=== PATIENT | female | born 1955 | race Caucasian/White ===

== ENCOUNTER 2025-01-30 10:48 | Outpatient (REF) | payer MEDICARE, SELFPAY ==
[2025-01-30 14:20] LABS: Hemoglobin A1C 128.9071 umol/L
[2025-01-30 14:27] LABS: Alanine Aminotransferase 33 U/L (0-31); Albumin Level 4.5 g/dL (3.5-5.0); Alkaline Phosphatase 104 U/L (39-117); Anion Gap 11 (12-20); Aspartate Amino Transferase 36 U/L (5-31); Blood Urea Nitrogen 15 mg/dL (9-16); Calcium 10.0 mg/dL (8.4-10.2); Carbon Dioxide 31 mmol/L (22-29); Chloride 104 mmol/L (96-108); Cholesterol 233 mg/dL (<200); Estimated Glomerular Filt Rate > 60; HDL Cholesterol 72 mg/dL (>40); Iron 106 mcg/dL (30-160); Percent Iron Saturation 30 % (15-50); Potassium 4.1 mmol/L (3.3-5.1); Sodium 142 mmol/L (135-145); Total Iron Binding Capacity 358 mcg/dL (228-428); Total Protein 7.3 g/dL (6.5-8.0); Triglycerides 111 mg/dL (<150); Unsaturated Iron Binding 252 ug/dL
[2025-01-30 14:42] LABS: Ferritin 32 ng/mL (10-250)
[2025-01-30 14:46] LABS: Hematocrit 45.2 % (37.0-47.0); Hemoglobin 14.6 g/dl (12.0-16.0); Mean Corpuscular HGB Conc 32.3 g/dl (31.0-35.0); Mean Corpuscular Hemoglobin 31.8 pg (27.0-33.0); Mean Corpuscular Volume 98.5 fL (80.0-98.0); NRBC Abs Auto 0.000 X10*3/uL (0.0-0.012); NRBC Pct Auto 0.0 /100WBC (0.0-0.2); Platelet Count 242 X10*3/uL (160-400); Red Blood Count 4.59 X10*6/uL (4.20-5.50); White Blood Count 5.5 X10*3/uL (4.8-10.8)
[2025-01-30 14:56] LABS: Folate 17.6 ng/mL (> or = 4.0); Vitamin B12 1902 pg/mL (200-900)
[2025-01-30 15:58] LABS: Free T4 (Free Thyroxine) 0.85 ng/dL (0.71-1.85)
== END 2025-01-30 10:49 | disposition home or self-care (01) ==
LOC: HO.LNP 10:48
PROVIDERS: Visit Provider Nurse Practitioner Family
DX: E03.8 Other specified hypothyroidism (principal); E78.5 Hyperlipidemia, unspecified; D72.819 Decreased white blood cell count, unspecified; E78.2 Mixed hyperlipidemia; R07.9 Chest pain, unspecified; Z78.0 Asymptomatic menopausal state; Z79.890 Hormone replacement therapy; Z79.899 Other long term (current) drug therapy; Z76.89 Persons encountering health services in other specified circumstances
CPT/HCPCS: 80053; 80061; 82043; 82306; 82570; 82607; 82728; 82746; 83036; 83540; 84439; 84443; 85027; 96127; 99202

== ENCOUNTER 2025-01-30 10:48 | Outpatient (AMB) | payer MEDICARE, SELFPAY ==
--- NOTE | 2025-01-30 10:54 | MHC.PC.OV ---
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 Tip Finisher Required: No Allergies codeine Adverse Reaction (Severe, Verified 01/30/25 10:59) Vomiting hydrocodone (From Vicodin) Adverse Reaction (Severe, Verified 01/30/25 10:59) Fainting Medication List - Last Reviewed 01/30/25 by Pollo Herzog MA estradiol (Yuvafem) 10 mcg vaginal 3XW finasteride 2.5 mg PO DAILY ivermectin 1% appl topical DAILY valacyclovir 500 mg PO Q12H Tobacco use date assessed: 01/30/25 Fall risk assessment: No Falls in past year Last assessed Fall Risk: 01/30/25 Dental Screening Dental Screen Date: 01/30/25 Did you have a dental visit in the last 12 months?: Yes Did you have a dental problem in the last 6 months where you did not have access to dental care?: No Was dental information given to patient?: Patient has dentist HPI HPI Comments History of Present Illness Details 69 y/ F HLD, chronic low back pain, osteopenia, menopause, rosacea, subclinical hypothyroid, recurrent leukopenia, fhx breast & colon ca, hairloss SurgHx: cone bx cervix, left thumb tumor removal, CTS R, tonsills, fusion of lumbar spine [id number] Dr Crouch, , hysterectomy FHx: Mom breast ca; Brother colon Ca; MGM cancer unknown 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 Feels safe at home. No pets. Health Maintenance: See scanned preventative medicine assessment with personalized health plan and screening schedule. 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 Previous PCP - [facility], records reviewed. Suspected Hypothyroidism: - The patient has a history of subclinical hypothyroidism and was on medication for it for several years but has since stopped. - She is currently concerned her thyroid may be an issue again due to symptoms including hair loss, dull hair, brittle nails that break, fatigue, and possible depression. fatigue, hair loss, brittle nails and depressive symptoms: - The patient reports increased fatigue, feeling tired and rundown, going to bed at 8 PM, and feeling she could use a nap during the day. - A depression screening was positive for reduced pleasure, low energy, and poor appetite at times. Intermittent chest pressure: - The patient reports experiencing intermittent, non-debilitating pressure-like pain in her chest area. - These episodes are infrequent, occurring perhaps four or five times since 2022, with the last episode a couple of weeks ago after a year-long gap. - One episode lasted for about two hours and was associated with back radiation, prompting her to consider a gallbladder issue, especially after consuming nuts. - Breathing does not seem to affect the pain and she has not identified other triggers. - A stress test was previously ordered by her former provider, but she did not receive the results. I do not have these @ this time but have requested. Medical History: - Past medical history is significant for hyperlipidemia, chronic low back pain, osteopenia, rosacea, and chronic leukopenia. - She has a history of herpes simplex, for which she takes valacyclovir as needed. - She had a fall a couple of years ago where she hit the back of her head on a doorframe and also broke her wrist in a separate incident. - The patient reports allergies/adverse reactions to codeine and Vicodin (hydrocodone). NOT APAP - Family history includes breast cancer in her mother and colon cancer in her brother. - She is followed by a managed care director for rosacea and an FLATBED PRESS OPERATOR for her Yuvafem prescription. - Her immunizations are up to date, including influenza, COVID-19, shingles, and a tetanus shot in 2019. Past Medical History - Hyperlipidemia - Chronic low back pain - Osteopenia - Rosacea - Subclinical hypothyroidism - Chronic leukopenia - Herpes simplex infection - History of fall with head injury and wrist fracture - Family history of breast cancer (mother) and colon cancer (brother) Review of Systems - General: Reports fatigue and feeling tired/rundown. - Psychiatric: Reports symptoms of depression including decreased pleasure, low energy, and poor appetite at times. Denies anxiety. - Integumentary/Hair/Nails: Reports hair loss, dull hair, and brittle nails. - Cardiovascular: Reports intermittent chest pressure. Denies lower extremity swelling. - Genitourinary: Denies dysuria. Physical Exam General: Well developed, well nourished, in no acute distress. Appears stated age. Head: Normocephalic, atraumatic. Eyes: Pupils are equal, round and reactive to light and accommodation. Conjunctivae are clear. Vision grossly normal. Neck: thyroid without nodules or tenderness Lungs: Clear to auscultation bilaterally. No rales, rhonchi or wheeze noted. Good air flow in all arshad. Heart: Regular rate and rhythm. No murmurs, click, rubs or gallops are noted. Musculoskeletal: Joints are nontender, without swelling, redness, or effusions. Pulses: Peripheral pulses are equal and palpable bilaterally. Extremities: No clubbing, cyanosis nor edema is noted. Psych: Mood and affect appropriate Results - Depression Screen (PHQ): Positive for decreased pleasure, low energy, and poor appetite. - Anxiety Screen: Negative. - Stress Test: Previously ordered, but results were not received and are pending request from prior provider. Medical Decision Making The patient is a 69-year-old female establishing care, presenting with concerns of fatigue, hair loss, brittle nails, and low mood, which she suspects may be related to her history of subclinical hypothyroidism. Given these symptoms, a laboratory workup is warranted to investigate potential underlying etiologies, including thyroid dysfunction, anemia, and vitamin deficiencies. Additionally, the patient reports infrequent, intermittent chest pressure. The differential for this includes both cardiac and gastrointestinal causes. To further evaluate this, I will request the records of her prior exercise stress test. The current lab panel will also include liver function tests, which can offer insight into possible gallbladder pathology, a consideration given the nature of one of her episodes. Further workup, such as a gallbladder ultrasound, H. pylori testing, or a nuclear stress test, will be contingent on the initial lab results and stress test review. The comprehensive plan is to obtain initial blood work today and have the patient follow up in 2-3 weeks for a full physical examination and a detailed in-person discussion of the results to formulate a collaborative treatment plan. Plan 1. Establishment Of Care And Health Maintenance - The patient will undergo blood work today to evaluate thyroid function, screen for anemia, and assess vitamin levels. - A follow-up appointment is scheduled in 2-3 weeks for a complete annual physical exam and to review the laboratory results. - The patient was counseled on signing up for the [employer] patient portal for improved communication with the office. - Confirmed patient's vaccinations for influenza, COVID-19, tetanus, and shingles are all up to date. 2. Fatigue, Hair Loss, Brittle Nails, And Depressive Symptoms - The differential diagnosis includes hypothyroidism, anemia, and vitamin deficiencies. - Plan to check a thyroid panel, complete blood count (CBC), and vitamin levels via blood work today. - Will reassess symptoms and discuss management based on lab results at the follow-up visit. 3. Intermittent Chest Pressure - The differential includes gastrointestinal causes such as cholelithiasis or H. pylori, as well as cardiac etiologies. - A request will be sent to obtain the results of the patient's previous exercise stress test for review. - Today's blood work includes liver and gallbladder function tests. - Further investigation with a gallbladder ultrasound or a nuclear stress test may be considered pending the results of the initial workup. 4. Medication Management - The patient's medication list was reviewed, including estradiol (Yuvafem), finasteride, ivermectin, and as-needed valacyclovir. - The patient states she does not need any refills at this time. - Documented adverse reactions to codeine and hydrocodone (Vicodin). Patient Instructions - Please have your blood drawn at the lab here in the office before you leave today. You do not need to fast for this. - Stop at the javascript front end developer to schedule your follow-up appointment for about 2-3 weeks from now. - You will receive a printout with information about our office and instructions on how to sign up for our [employer] patient portal. Please sign up and use it to message our office. - We will discuss your lab results in person at your next visit unless there is a serious issue that needs immediate attention. - Remember that we have walk-in centers in [facility] for our patients if you need to be seen for an urgent issue. Consent Patient was informed and verbally consented to the use of an ambient scribe for clinic note documentation during this visit. Total time spent caring for the patient today was 45 minutes. This includes time spent before the visit reviewing the chart, time spent during the visit, and time spent after the visit on documentation, reviewing laboratory results, diagnostic imaging, medications, performing a medically necessary evaluation, counseling on diagnoses, care coordination, ordering appropriate tests, ordering appropriate medications, review of tests performed by other providers, reporting test results with the patient, communication with other healthcare providers. [facility] Medical History (Updated 01/30/25 @ 11:36 by Yesenia Moore [facility]) Arthritis Carpal tunnel syndrome Rosacea Thyroid disorder Surgical History (Updated 01/30/25 @ 11:32 by Pollo Herzog MA) H/O cone biopsy of cervix H/O: hysterectomy History of lumbar fusion History of tonsillectomy Hx of colonoscopy (~2017) Family History (Updated 01/30/25 @ 11:32 by Pollo Herzog MA) Brother HTN (hypertension) Mother Breast cancer Paternal Grandfather Substance abuse Social History (Updated 01/30/25 @ 10:55 by Pollo Herzog MA) Household Members: None Both parents involved: No Caregiver staying overnight: No Housing: House Are you a primary manager wound care to a significant other at home: No Do you presently have visiting nurse or other home services: No 75 years or older and lives alone: No Alcohol intake: never Patient Tobacco Use Status: Never used Tobacco e-Cigarette/Vaping Use: Never Used Second Hand Smoke Exposure: No service: No Current occupational status: employed and retired 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 1. Little interest or pleasure in doing things: several days 2. Feeling down, depressed, or hopeless: not at all 3. Trouble falling or staying asleep, or sleeping too much: not at all 4. Feeling tired or having little energy: several days 5. Poor appetite or overeating: several days 6. Feeling bad about yourself - or that you are a failure or have let yourself or your family down: not at all 7. Trouble concentrating on things, such as reading the newspaper or watching television: not at all 8. Moving or speaking so slowly that other people could have noticed. Or the opposite - being so fidgety or restless that you have been moving around a lot more than usual: not at all 9. Thoughts that you would be better off or of hurting yourself in some way: not at all Total score: 3 Depression Screening Interpretation: Negative Depression Screening Done: Yes 79869 - PHQ-9 Billing: Yes Source: Developed by Drs. Star Skinner, Jennifer Ivy, Mik Maciel and colleagues, with an educational portia from [employer]. Thrive Questionnaire Date Thrive assessed: 01/30/25 I am a: Patient What is your living situation today?: I have a steady place to live Within the past 12 months, did the food you bought not last and you didn't have the money to get more?: Never true Within the past 12 months, did you worry whether your food would run out before you got money to buy more?: Never true Do you have trouble paying for medicines?: No Do you have trouble getting transportation to medical appointments?: No Do you have trouble paying your heating and electricity bill?: No Do you have trouble taking care of your child, family member or friend?: No Do you have trouble with day-to-day activities such as bathing, preparing meals, shopping, managing finances, etc.?: No Are you currently unemployed and looking for a job?: No Are you interested in more education?: No Please select the resources that you would like help with: None Currently or been in a relationship where the following occur: No concerns reported THRIVE Score: 0 AUDIT C Alcohol Use Questionnaire (AUDIT-C) 1. How often do you have a drink containing alcohol?: Never 3. How often do you have six or more drinks on one occasion?: Never Total Score: 0 Score Reviewed/Action Taken: Yes SHRUTHI-7 AMB Questionnaire SHRUTHI-7 Date SHRUTHI - 7 assessed: 01/30/25 Feeling nervous, anxious, or on edge: 0 = Not at all Not being able to stop or control worryin = Not at all Worrying too much about different things: 0 = Not at all Trouble relaxin = Not at all Being so restless that it is hard to sit still: 0 = Not at all Becoming easily annoyed or irritable: 0 = Not at all Feeling afraid as if something awful might happen: 0 = Not at all Total SHRUTHI-7 score (0-4 normal; 5-9 mild; 10-14 moderate; 15-21 severe): 0 Source: Developed by Drs. Star Skinner, Jennifer Ivy, Mik Maciel and colleagues, with an educational portia from [employer]. SHRUTHI-7 Assessment Billing SHRUTHI-7 Assessment Tool: SHRUTHI-7 Assessment 76867 Physical exam (Primary Care) Vital Signs: Last Vital Signs Temp 97.2 F 01/30/25 11:02 Pulse 68 01/30/25 11:02 Resp 12 01/30/25 11:02 BP 102/67 01/30/25 11:02 Pulse Ox 97 01/30/25 11:02 Oxygen Delivery Method Room Air 01/30/25 11:02 BMI result Body Mass Index 19.9 Tobacco/Smoking Status: Tobacco use Status Tobacco use date assessed 01/30/25 01/30/25 10:58 Patient Tobacco Use Status Never used Tobacco 01/30/25 11:05 e-Cigarette/Vaping Use Never Used 01/30/25 11:05 PHQ-9: PHQ-9 Score PHQ-9: Total score 3 01/30/25 11:07 Depression Screening Interpretation: Negative Thrive Assessment: Date of Thrive Assessment Date Thrive assessed 01/30/25 01/30/25 10:58 Currently or been in a relationship where the following occur: No concerns reported Coding Level of Care Code New Pt Level 4 (06032) Complex EM visit Add On G2211 Diagnoses Encounter to establish care Z76.89 Mixed hyperlipidemia E78.2 Hyperlipidemia type: mixed hyperlipidemia Subclinical hypothyroidism E03.8 Chronic leukopenia D72.819 Menopause Z78.0 Chest pain, unspecified type R07.9 Chest pain type: unspecified Additional Codes SHRUTHI-7 Assessment Billing - SHRUTHI-7 Assessment Tool: SHRUTHI-7 Assessment 58462 ([id number]) PHQ-9 - 59324 - PHQ-9 Billing: Yes ([id number]) Assessment & Plan Assessment & Plan (1) Encounter to establish care: Code(s): Z76.89 - Persons encountering health services in other specified circumstances (2) HLD (hyperlipidemia): Code(s): E78.5 - Hyperlipidemia, unspecified Category: Medical Qualifiers: Hyperlipidemia type: mixed hyperlipidemia Qualified Code(s): E78.2 - Mixed hyperlipidemia (3) Subclinical hypothyroidism: Code(s): E03.8 - Other specified hypothyroidism Category: Medical (4) Chronic leukopenia: Code(s): D72.819 - Decreased white blood cell count, unspecified Category: Medical (5) Menopause: Code(s): Z78.0 - Asymptomatic menopausal state Category: Medical (6) Chest pain: Code(s): R07.9 - Chest pain, unspecified Category: Medical Qualifiers: Chest pain type: unspecified Qualified Code(s): R07.9 - Chest pain, unspecified Plan . Orders: Orders Comprehensive Met. Panel Today D72.819 - Decreased white blood cell count, unspecified, E03.8 - Other specified hypothyroidism, E78.5 - Hyperlipidemia, unspecified Ferritin Today D72.819 - Decreased white blood cell count, unspecified, E03.8 - Other specified hypothyroidism, E78.5 - Hyperlipidemia, unspecified IRON PROFILE Today D72.819 - Decreased white blood cell count, unspecified, E03.8 - Other specified hypothyroidism, E78.5 - Hyperlipidemia, unspecified Vitamin B12 and Folate Today D72.819 - Decreased white blood cell count, unspecified, E03.8 - Other specified hypothyroidism, E78.5 - Hyperlipidemia, unspecified Vitamin D 25-OH Total Today D72.819 - Decreased white blood cell count, unspecified, E03.8 - Other specified hypothyroidism, E78.5 - Hyperlipidemia, unspecified Complete Blood Count no Diff Today D72.819 - Decreased white blood cell count, unspecified, E03.8 - Other specified hypothyroidism, E78.5 - Hyperlipidemia, unspecified Hemoglobin A1c Today D72.819 - Decreased white blood cell count, unspecified, E03.8 - Other specified hypothyroidism, E78.5 - Hyperlipidemia, unspecified Lipid Panel Today D72.819 - Decreased white blood cell count, unspecified, E03.8 - Other specified hypothyroidism, E78.5 - Hyperlipidemia, unspecified Microalbumin, Random (w Creat) Today D72.819 - Decreased white blood cell count, unspecified, E03.8 - Other specified hypothyroidism, E78.5 - Hyperlipidemia, unspecified TSH reflex Free T4 Today D72.819 - Decreased white blood cell count, unspecified, E03.8 - Other specified hypothyroidism, E78.5 - Hyperlipidemia, unspecified Medications: New valacyclovir 500 mg PO Q12H 30 tabs 0RF Patient Instructions: Walk-In Care (Urgent Care): We Make it Easy Walk-in for urgent medical issues such as: ? Seasonal Allergies ? Insect Bites ? Cough ? Diarrhea ? Acute Asthma Attacks ? Back, Knee or Joint Pain ? Ear Infection ? Fever without a Rash ? Headaches ? Nausea ? [place], Rash or Skin Irritation ? Sore Throat ? Sports Physicals ? Vomiting Most insurances are accepted. Patients do not need to be part of the [facility] to seek care at the walk-in clinic. Locations [address] [place], [place] Open Thursday through Thursday 8am-5pm *Hours may vary due to staffing availability. To confirm Walk-In Care hours please call. [address] [facility] , [place] [address] ? [phone] [facility] Walk-In Care in [place] provides services to ages 18 and over. Open Thursday-Thursday: 7 a.m. to 5 p.m. and Thursday: 9 a.m. to 3 p.m.* *Hours may vary due to staffing availability. To confirm Walk-In Care hours in [place], please call [phone]. [address] [place] [address] ? [phone] [facility] Walk-In Care in [place] provides services to ages 12 and over. Open Thursday-Thursday: 8 a.m. to 5 p.m. Hours may vary due to staffing availability. To confirm Walk-In Care hours in [place], please call [phone]. LABORATORY SERVICES: [facility] Lab ? Primary Location [address] [place] [address] Thursday through Thursday 6:00 AM ? 5:00 PM Thursday 7:00 AM ? 11:00 AM* [phone] The [facility] Lab is centrally located near the front entrance of the [facility] for easy outpatient access. Convenient parking is provided for outpatients. *Hours may vary due to staffing availability. To confirm Laboratory hours for any location, please call [phone]. Offsite Location For your convenience, we offer offsite laboratory draw stations at the following locations: [address] [place] [address] ? [facility] [address], [address], [place] Thursday through Thursday 7:30 AM ? 1:00 PM* [phone] *Hours may vary due to staffing availability. To confirm Laboratory hours for any location, please call [phone]. [place] ? [facility] [address] [facility], [place] Thursday through Thursday 6:00 AM ? 3:30 PM* Thursday 6:30 AM ? 3 PM* [phone] *Hours may vary due to staffing availability. To confirm Laboratory hours for any location, please call [phone]. [address] [facility] Thursday through Thursday 7:30 AM ? 4:00 PM* [phone] *Hours may vary due to staffing availability. To confirm Laboratory hours for any location, please call [phone] [place] [address] Thursday through 9:00 AM ? 4:00 PM* *Hours may vary due to staffing availability. To confirm Laboratory hours for any location, please call [phone]. Appointments are not necessary. Walk-ins are welcome. Like all the departments throughout the [facility], our Lab undergoes frequent reviews to ensure the quality and accuracy of test results, and our staff takes special pride in its status as a nationally accredited facility. Patient Portal: [facility] ONE PATIENT. ONE RECORD. BETTER CARE. [facility] has a fully integrated, cutting-edge mobile electronic health information system that has revolutionized the way we care for our patients and manage our organization. This system improves communication and coordination enabling us to provide safe, higher-quality care, and an overall positive experience for staff and patients. Our first priority, as always, is to deliver the highest quality care possible. The system is running in the background supporting that priority. This portal is for all [facility] services and practices. If you are experiencing any technical difficulties with enrolling or logging into the Patient Portal please complete the [facility] Patient Portal Technical Support Form. [facility] now offers a new secure on-line interactive tool for patients to review their health information ? ?Patient Portal. This interactive web portal will enable patients and their families to take an active role in their care by providing easy, secure access to their health information via the internet. The Patient Portal provides patients with instant access to their health information, including laboratory results, medications, allergies, demographic information, visit history, and more. In addition to managing their own care, parents and health care proxies with authorized consent will appreciate the ability to access the records of those individuals for whom they provide care. Please note: if you wish to gain access (Proxy) to another patient?s portal, you will be required to come to the Medical Records Department in person at [facility]. Both the patient giving proxy access and the proxy will need to provide photo identification and complete the appropriate authorization. The Patient Portal also allows track their appointments online. The [facility] Patient Portal also saves patients time by allowing them to submit updates to their demographic and contact information prior to their visits. Portal email notifications will also alert patients to any new activity on their portal, such as test results and new appointments. In order to initially enroll in the [facility] Patient Portal, you will need to enter some required information including the following: your [place] [facility] Medical Record number your personal home email address name date of Please note: In order to enroll in the [facility] Patient Portal, we need to have your email address on file in your electronic medical record. ?The email address needs to be specific for one person (yourself) in order for your Portal enrollment to be successful. ?You can update your email address in person with our Registration staff when you are registering for a hospital visit. ?Otherwise, you will need to come to the Health Information Management (Medical Records) Department at [facility]. ?We are open from Thursday ? Thursday from 7:30 a.m. ? 4:30 p.m. ?You will be required to present a photo id. Once you have successfully enrolled in the Patient Portal, you will receive a one-time user id and password for the Portal, sent to your email address. ?This will allow you to log into the Patient Portal within 99 hrs and reset your own logon id and password, and define personal security questions. ?Once your permanent login and password have been set, you can log into the [facility] Patient Portal at any time via the blue button above or from the Portal Logon button on any page of the [facility] website. [facility] and [facility] encourage all of our patients to enroll in Patient Portal as it presents a valuable opportunity for patients and their families to actively participate in their care and stay healthy Welcome to [facility]. ?We look forward to working with you.
[2025-01-30 11:02] VITALS: BP 102/67; PULSE 68; RESP 12; TEMP 36.2; O2SAT 97; BMI 19.9
--- OUTSIDE RECORDS SUMMARY | 2025-01-30 13:23 | XMS_ITS | Patient Health Record ---
Author Organization [facility] Address [address] [place] [address] Care Team Providers Care Biology Faculty Member Name Role Phone KAIN (), SARAVANANJOSSUEPATY Primary Care Provider U FAVIO Augustin Unavailable [phone] Allergies Allergen (clinical drug ingredient) Drug/Non Drug Allergy documented on EMR Reaction Allergy Type Onset Date Status codeine CODEINE Nausea/Vomiting/ Diarrhea Drug Allergy Active Results Component Value Reference Range Notes [id number] IGP No Culture 30 Plus Reviewed date:06/16/2024 04:42:37 PM Interpretation: Performing Lab:[facility] [place], [address], [address], [place], Phone - [phone], Director - [facility] Notes/Report: Clinical Information:Cervical, LMP: [place], Hx of HGSIL, + HPV Source.............Vagina LMP / Prev Treat...Hyst Dates / Results....06/08/23 HGSIL, + HPV Other..............Post Menopausal No. of containers..01 ThinPrep Vial DIAGNOSIS: NEGATIVE FOR IN TRAEPITHELIAL LESION OR MALIGNANCY. Specimen adequacy: Satisfact ory for evaluation. Clinician provided ICD10: Z0 1.419 Performed by: Sharad faith, Volcanology Professor (ASCP) . . Note: The Pap smear is a screening test designed to aid in the detection of premalignant and malignant conditions of the uterine cervix. It is not a diagnostic procedure and should not be used as the sole means of detecting cervical cancer. Both false-positive and false-negative reports do occur. . Test Methodology: This liquid based ThinPrep(R) pap test was screened with the use of an image guided system. HPV Aptima Negative Negative This nucleic acid amplification test detects fourteen high-risk HPV types (16,18,31,33,35,39,45,51,52,56,58 ,59,66,68) without differentiation. HPV Genotype Reflex Criteria not met, HPV Genotype not performed. PDF Report Reviewed date:06/16/2024 04:43:10 PM Interpretation: Performing Lab:[facility] [place], [address], [address], [place], Phone - [phone], Director - [facility] Notes/Report: Clinical Information:Cervical, LMP: [place], Hx of HGSIL, + HPV Source.............Vagina LMP / Prev Treat...Hyst Dates / Results....06/08/23 HGSIL, + HPV Other..............Post Menopausal No. of containers..01 ThinPrep Vial Reason For Referral No Information Medications Medication SIG (Take, Route, Fr equency, Duration) Notes Start Date End Date Status valACYclovir HCl 500 MG 1 tablet Orally every 12 hrs at earliest sign of outbreak; Duration: 3 days 03/18/2016 Activ e Estradiol 10 MCG 1 tablet Vaginal Thr ee times a Week; Duration: 365 days 02/01/2024 Activ e Calcium + D Active Folic Acid Active Multi-Vitamin - 1 tablet Orally Once a day Active Ivermectin 1 % 1 application Agricultural Lender ally Once a day Active Immunizations Vaccine Route Administration Date Status Comme nts Influenza, live, intranasal Intramuscular 04/03/2011 Pendi ng Tdap Intramuscular 03/26/2011 Pending Tdap Intramuscular 04/03/2011 Pending Social History Tobacco Use: Social History Observation Description Date Details (start date - stop date) Former Smoker NA - NA Tobacco use other than smoking: Question Answer Notes Are you an other tobacco user? No AUDIT-C (Standard) Question Answer Notes Did you have a drink containing alcohol in the p ast year? No Points 0 Interpretation Negative Tobacco Control (Standard) Question Answer Notes Tobacco use: Former smoker How long has it been since you last smoked? 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 .CE: Smoking: former smoker .CE: Smoking Amount: 1 PPD x 10 years .CE: Smoking Quit Date: 1981 Tobacco exposure: No smokers in home. 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 .CE: Smoking: former smoker .CE: Smoking Amount: 1 PPD x 10 years .CE: Smoking Quit Date: 1981 Tobacco exposure: No smokers in home. 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 .CE: Smoking: former smoker .CE: Smoking Amount: 1 PPD x 10 years .CE: Smoking Quit Date: 1981 Tobacco exposure: No smokers in home. 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 .CE: Smoking: former smoker .CE: Smoking Amount: 1 PPD x 10 years .CE: Smoking Quit Date: 1981 Tobacco exposure: No smokers in home. 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 Problems Problem Type SNOMED Code ICD Code Onset Dates Problem Status W/U Status Risk Notes Problem Hypothyroidism (50940100) Unspecified hypothyroidism (244.9) Active confirmed Problem Rosacea (083001959) Rosacea (695.3) Active conf irmed Problem Human papilloma virus deoxyribonucleic acid test positive, high risk on vaginal specimen (594322194697529) Cervical high risk human papillomavirus (HPV) DNA test positive (R87.810) Active confirmed Problem Postmenopausal atrophic vaginitis (00343666) Postmenopausal atrophic vaginitis (N95.2) Active confirmed Problem Postmenopausal bleeding (60434523) Postmenopausal bleeding (N95.0) Active confirmed Problem Herpetic vulvovaginitis (30962076) 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) Active confirmed Problem Abnormal findings on diagnostic imaging of breast (699828684) Other abnormal and inconclusive findings on diagnostic imaging of breast (R92.8) Active confirmed Problem Carpal tunnel syndrome (80967533) Carpal tunnel syndrome (354.0) Active confirmed Major Problem 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) (251248393) Unspecified hypertrophic and atrophic condition of skin (701.9) Active confirmed Diag Vital Signs Temperature 97.4 degrees Fahrenheit 06/14/2024 Blood pressure diastolic 70 mm Hg 06/14/2024 Height 61 in 06/14/2024 Blood pressure systolic 108 mm Hg 06/14/2024 Weight 104 lbs 06/14/2024 BMI 19.65 kg/m2 06/14/2024 Encounters Encounter Location Date Provider Diagnosis [facility] [place] [address] [employer] [address] [address] 06/14/2024 FAVIO RAPP Encounter for gynecological examination (general) (routine) without abnormal findings Z01.419 ; Encounter for screening mammogram for malignant neoplasm of breast Z12.31 and Postmenopausal atrophic vaginitis N95.2 [place] [address] [employer] [address] [address] 05/31/2024 FAVIO RAPP [facility] [address] [address] 10/25/2024 FAVIO RAPP Herpesviral vulvovaginitis A60.04 [facility] [place] [address] [employer] [address] [address] 02/01/2024 FAVIO RAPP [facility] [place] [address] [employer] [address] [address] 04/01/2024 FAVIO RAPP Herpesviral vulvovaginitis A60.04 [facility] [place] [address] [address] 06/24/2024 FAVIO RAPP [place] [address] [employer] [address] [address] 09/25/2024 FAVIO RAPP [place] [address] [address] 09/26/2024 FAVIO RAPP Assessments Encounter Date Diagnosis (ICD Code) Assessment Notes Treatment Notes Treatment Clinical Notes Section Notes 04/01/2024 Herpesviral vulvovaginitis (ICD-10 - A60.04) 06/14/2024 Encounter for gynecological examination (general) (routine) without abnormal findings (ICD-10 - Z01.419) During the visit, the following areas of concern were addressed: Discussed sstopping cervical cancer screening as per ASCCP guidelines. Advised continued annual pelvic exams. Patient encouraged to increase her level of exercise. SBE technique encouraged/tau ght. Patient reminded when annual mammogram is due. Patient encouraged to keep colon screening up to date. 10/25/2024 Herpesviral vulvovaginitis (ICD-10 - A60.04) 06/14/2024 Encounter for screening mammogram for malignant neoplasm of breast (ICD-10 - Z12.31) 06/14/2024 Postmenopausal atrophic vaginitis (ICD-10 - N95.2) Plan Of Treatment Pending Test Test Name Order Date Sonohysterogram 05/12/2017 MAMMOGRAM, SCREENING 10/03/2014 Bone Density 10/03/2014 Bone Density 12/05/2016 NTX 12/12/2014 ALK PHOS 12/12/2014 CALCIUM 12/12/2014 PTH, INTACT 12/12/2014 THIN PREP,HPV,MARLENY IF HPV+ (>29YR)(DIAG) 03/12/2018 THIN PREP,HPV,MARLENY IF HPV+ (>29YR)(DIAG) 10/11/2019 THIN PREP,HPV,MARLENY IF HPV+ (>29YR)(DIAG) 06/02/2022 THIN PREP,HPV,MARLENY IF HPV+ (>29YR)(DIAG) 03/17/2017 THIN PREP,HPV,MARLENY IF HPV+ (>29YR)(SCRN) 12/05/2015 TSH 12/12/2014 MM Digital Mammo Screening 12/05/2015 MM Digital Mammo Screening 03/12/2018 MM Digital Screening Mammogram 3D 2023 MM Digital Screening Mammogram 3D 2024 Right Breast Diagnostic Mamm o 6 Month Follow Up, Left Breast Screening Mammo 06/08/2023 Right Breast Diagnostic Mamm o 6 Month Follow Up, Left Breast Screening Mammo 06/02/2022 Next Appt Details Provider Name:FAVIO Sky, 06/20/2025 08:00:00 AM, [address], [address], [place], [address], Insurance Providers Payer Name Payer Address Payer Phone Subscriber Number Group Number Insured Name Patient Relationship to Insured Coverage Start Date Coverage End Date [employer] MEDICARE PPO [address] [place] [address] [id number] ISMA PRUITT Self - patient is the insured Medical (General) History Medical History History ICD Code Cervical high risk human papillomavirus (HPV) DNA test positive R87.810 Postmenopausal bleeding N95.0 Hypothyroidism, unspecified E03.9 Other rosacea L71.8 Carpal tunnel syndrome, unspecified uppe r limb G56.00 Atrophic disorder of skin, unspecified L 90.9 Low grade squamous intraepit helial lesion on cytologic smear of cervix (LGSIL) R87.612 Disorder of bone density and structure, unspecified M85.9 Age-related osteoporosis without current pathological fracture M81.0 Atypical squamous cells of u ndetermined significance on cytologic smear of cervix (ASC-US) R87.610 Surgical History Surgery Date(Month/Year) Carpal Tunnel Repair Tonsillectomy Thumb Surgery 2016 [facility] biopsy 12/2018 Cyst Removed and L4, L5 fused 07/2020 Robotic assisted LVH BSO for CIN3 (Dr. Reyna vega) 03/27/2021 Hospitalization History Reason Date(Month/Year) See Surgical Hx Child
== END 2025-01-30 11:28 | disposition home or self-care (01) ==
PROVIDERS: PCP Nurse Practitioner Family; Visit Provider Nurse Practitioner Family
DX: Z76.89 Persons encountering health services in other specified circumstances (principal); E78.2 Mixed hyperlipidemia; E03.8 Other specified hypothyroidism; D72.819 Decreased white blood cell count, unspecified; Z78.0 Asymptomatic menopausal state; R07.9 Chest pain, unspecified

== ENCOUNTER 2025-03-01 11:22 | Outpatient (AMB) | payer MEDICARE, SELFPAY ==
--- NOTE | 2025-03-01 11:24 | A.OFFVIS_ITS ---
Intake Vital Signs 03/01/25 11:29 Height 5 ft 1 in Weight 107 lb 2 oz BMI 20.2 BP 99/68 Blood Pressure Location Lt brachial Position Sitting Respiration 12 Pulse 63 Pulse Source Pulse Oximeter Temp 97.3 F Temp Source Oral Pulse Oximetry (%) 100 Oxygen Delivery Method Room Air Intake Visit Reasons: 2-3 weeks sAWV Intake Note: AWV Technical Advisor Required: No Allergies codeine Adverse Reaction (Severe, Verified 03/01/25 11:25) Vomiting hydrocodone (From Vicodin) Adverse Reaction (Severe, Verified 03/01/25 11:25) Fainting Medication List - Last Reconciled 03/01/25 by Yesenia Moore, INSIGHTS ANALYST- estradiol (Yuvafem) 10 mcg vaginal 3XW finasteride 2.5 mg PO DAILY ivermectin 1% appl topical DAILY levothyroxine 25 mcg PO DAILY valacyclovir 500 mg PO Q12H Is last menstrual period known: No Post menopausal: No Patient : No Do you need a note to return to daycare/school/sports/work: No HPI HPI Comments History of Present Illness Details Here today for AWV. The Medicare Annual Wellness Visit (AWV) is a yearly appointment with a health professional to identify health risks and help reduce them and to create or update a personalized prevention plan. During a Medicare AWV, health professionals should also review any current opioid prescriptions, detect any cognitive impairment, and establish or update medical and family history. 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 Feels safe at home. No pets. Has a boyfriend and 2 children w/ ADD Health Maintenance: See scanned preventative medicine assessment with personalized health plan and screening schedule. 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 Patient instructions were provided to the patient in written or electronic format. I have reviewed and verified the above information. History of Present Illness The patient is a 69-year-old individual presenting for an annual Medicare wellness visit. Subclinical hypothyroidism: - The patient was recently diagnosed wit h subclinical hypothyroidism, with a TSH greater than 7, and was started on levothyroxine 25 mcg about a month prior to the visit. - The patient has not felt any significa nt difference or improvement in fatigue since starting the medication, though notes that hair loss might be slightly better. - Follow-up labs are scheduled to be don e six weeks after initiating treatment, which is in about two weeks. Osteoporosis: - A bone density scan in September 2023 revea led osteoporosis, which had progressed from osteopenia. - The patient notes a history of fluctua ting between osteopenia and osteoporosis and has previously declined medications for the condition by choice. - The patient takes calcium and vitamin D supplements and acknowledges the need to increase weight-bearing exercise. Cataracts: - The patient's last eye exam was in the spring, where small cataracts were noted. - The patient reports significant diffic ulty driving at night due to oncoming lights and feels they lose sight of the road. - The patient has been told by two [facility] doctors that the cataracts are still very small and not ripe for intervention. - The patient has a history of larger th an normal pupils and sensitivity to light, and speculates this may worsen the effect of the small cataracts. Hyperlipidemia: - Recent lab work showed an LDL choleste rol of 139, which is above the goal of less than 100. - It was noted this could be a false hoang vation due to the patient's elevated TSH of 7.19. - The patient's HDL, the good cholestero l, is on the higher end of normal, which is considered heart-protective. Health Maintenance: - An EKG performed today showed normal s inus rhythm. - A Pap smear in 2023 was abnormal, show ing HGSIL and HPV positivity, but a repeat Pap smear in 2024 was normal. - A mammogram was completed in September 2024 . - The patient's last colonoscopy was per formed at [facility],2016, had a normal result, and is due for a repeat in 10 years. - All vaccinations are up to date. - A recent A1c was 5.3, which is normal and rules out diabetes. Past Medical History - Subclinical hypothyroidism, with a mos t recent TSH greater than 7, treated with levothyroxine 25 mcg. - Herpes, treated with epicyclovir as ne eded. - Menopause, treated with estradiol. - Chronic hair loss, treated with finast eride. - Rosacea, treated with topical ivermect in. - History of HGSIL and positive HPV on a 2023 Pap smear, with a normal follow-up Pap smear in 2024. - Osteoporosis, diagnosed from a bone de nsity scan in September 2023. - History of intermittent chest pressure , which has since resolved. - Suspected adult attention-deficit diso rder (ADD). Family History - Great-grandmother of kidney disea se ( kidney hemorrhage). - Both children have been diagnosed with ADD. - The patient's children's father had AD HD. Social History - Alcohol use: The patient reports no al cohol intake. - Exercise: The patient acknowledges a n eed to increase exercise, as activity levels decreased after COVID, and is considering finding enjoyable classes. - Functional Status: The patient is inde pendent with activities of daily living, does not receive home services, drives without problems, and has had no falls. - Advanced Directives: The patient has a healthcare proxy but does not have a formal living will, preferring to let the proxy make decisions. 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 Health Maintenance - Vaccinations are up to date. - Pap smear: A Pap smear in June 2023 w as abnormal with HGSIL and HPV positivity; a repeat in 2024 was normal. - Mammogram: Last performed in September 2024 . - Colonoscopy: Last performed at [facility] w ith normal results, due for repeat in 10 years. - Bone density scan: Last performed in [facility] 2023 and showed osteoporosis. - EKG: Performed today and showed normal sinus rhythm. - Diabetes screen: A1c from January 30 was 5.3, which is normal. - Eye exam: Last in-office eye exam was in spring, around June. Review of Systems - Constitutional: Reports no significant improvement in fatigue since starting levothyroxine. - Cardiovascular: Denies current chest p ain. - Eyes: Reports significant difficulty d riving at night due to lights; has known small cataracts. - ENT: Denies problems with hearing. - Skin: Reports chronic hair loss, which may be slightly better. - Neurological/Psychiatric: Reports subj ective memory issues, such as difficulty with names and misplacing items, for which the patient takes Prevagen. - Genitourinary: Denies urinary incontin ence or leaking. - Gastrointestinal: Reports pooping norm ally most of the time. - Musculoskeletal: Denies any issues wit h feet. Physical Exam General: Well developed, well nourished, in no acute distress. Appears stated age. Head: Normocephalic, atraumatic. Eyes: Pupils are equal, round and reactive to light and accommodation. Conjunctivae are clear. Scleras nonicteric bilat. Vision grossly normal. Patient reports difficulty driving at night due to small cataracts and larger than normal pupils. Ears: TMs clear AU, EACS WNL. No reported hearing issues. Nose: Patent, without discharge. Neck: No carotid bruit bilat. Supple, no adenopathy or thyromegaly. Breast: Edu on SBE Lungs: Clear to auscultation bilaterally. No rales, rhonchi or wheeze noted. Good air flow in all arshad. Heart: Regular rate and rhythm. No murmurs, click, rubs or gallops are noted. EKG shows normal sinus rhythm. Abdomen: Bowel sounds present in all quadrants. The abdomen is soft, nontender, with no masses or organomegaly noted. No hernias are noted. : Deferred. Reviewed recommendations for routine KNIFE OPERATOR. Pulses: Peripheral pulses are equal and palpable bilaterally. Extremities: No clubbing, cyanosis nor edema is noted. Neurologic: Gait and station normal. Cranial Nerves 2-12 intact. Motor strength grossly symmetrical and intact. No sensory loss. Balance normal. Skin: No rashes, ulcers, or lesions noted. Turgor is good. Skin color is good. Hair and nails are without abnormalities. Patient reports chronic hair loss. Psych: Normal eye contact, affect and mood appropriate, and normal interactions. Patient is alert and appropriate to context. Reports no concerns about memory but is taking Prevagen for cognitive support. Results - EKG (Today): Normal sinus rhythm. - Labs (01/30): - A1c: 5.3% (normal). - CBC, electrolytes, kidney function, an d iron stores were all normal. - Liver enzymes: Mildly elevated with an AST of 36 (normal <31) and ALT of 33 (normal <31). - Lipid panel: LDL was 139 mg/dL; HDL wa s in the high-normal, heart-protective range. - TSH: 7.19. - Urinalysis: Normal, with no signs of e charles kidney disease. - Bone Density (September 2023): Showed osteo porosis. - Pap Smear (2023): Abnormal with HGSIL and HPV positive. - Pap Smear (2024): Normal. - Mammogram (September 2024): Completed. Medical Decision Making The patient is a 69-year-old individual seen for an annual Medicare wellness visit. The patient's subclinical hypothyroidism, diagnosed with a TSH of 7.19, is being treated with levothyroxine 25 mcg, which was started one month ago. Minimal symptomatic improvement is noted, and follow-up TSH is planned in two weeks to assess therapeutic response and guide further dose adjustments. Recent lab work revealed an elevated LDL of 139, but this is likely a secondary effect of hypothyroidism and doesn't warrant initiation of statin therapy at this time, especially given a protective high HDL level. Lipid levels will be reassessed once the patient is euthyroid. The mildly elevated liver enzymes are not clinically concerning and will be monitored. A prior complaint of intermittent chest pressure has resolved, and a normal EKG today makes a cardiac etiology unlikely. Health maintenance was reviewed; the patient is up-to-date on vaccinations. For osteoporosis management, the patient was encouraged to increase weight-bearing exercises and an order was placed for a repeat bone density scan to be done with the patient's annual mammogram in September. The patient's night driving difficulties are notable despite reports of small cataracts; the patient was advised to discuss this further at the next eye exam, and a referral to a specialist was offered but declined for now. Plan 1. Subclinical Hypothyroidism - Continue levothyroxine 25 mcg daily. - Repeat thyroid labs in approximately t wo weeks (any time from the second week of March onward) to complete the six-week post-initiation check. - A follow-up plan will be determined ba sed on the results of the thyroid labs. 2. Annual Medicare Wellness Visit - All vaccinations are up to date. - Schedule annual visit upon leaving [facility]. - Addressed concerns regarding memory; t he patient is taking Prevagen and symptoms are not disruptive at this time. - Confirmed patient has a healthcare pro xy and reviewed wishes regarding advanced care planning. 3. Osteoporosis, Without Current Patholo gical Fracture - An order has been placed for a repeat bone density scan, to be performed in September at the same time as the patient's mammogram. - A paper copy of the order will be prov ided for the patient to take to the preferred imaging center. - The patient is encouraged to increase weight-bearing activities and continue calcium and vitamin D supplementation. 4. Hyperlipidemia - No medication will be initiated at thi s time, as the LDL of 139 is likely falsely elevated due to untreated hypothyroidism. - A repeat lipid panel will be ordered o nce the patient's thyroid function has normalized to get an accurate assessment. 5. Cataracts - The patient reports significant sympto ms of difficulty driving at night despite being told cataracts are small. - A referral to an medical staff director (Dr. Appiah) was offered, but the patient declined for now. - The patient will bring up concerns aga in at the next eye exam. 6. 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 - The patient will continue annual follo w-up with [employer] [employer] [facility]. 7. Screening For Malignant Neoplasm Of C olon 2017 [place] - The patient reports the last colonosco py was normal with a 10-year follow-up recommended. - Staff will attempt to obtain the recor ds from [facility] for the patient's file. Patient Instructions - Continue taking your Levothyroxine 25 mcg medication every day. - Please go for follow-up blood work in about two weeks (any time after March 13). - You do not need an appointment for the labs; just check in at the front desk administrator. - supervising law enforcement analyst the paper order for your bone density scan at the front desk administrator before you leave. - You can schedule the bone density scan for September, at the same time as your [facility] mogram. - Try to increase your physical activity with weight-bearing exercises like walking and jumping. - Please book your next annual appointme nt for one year from now. - If you experience any changes in your health, please send a message or call the office. Consent Patient was informed and verbally consented to the use of an ambient scribe for clinic note documentation during this visit. An additional 30 minutes was spent addressing the problem(s) noted at todays visit. This includes time spent before the visit reviewing the chart, time spent during the visit, and time spent after the visit on documentation reviewing laboratory results, diagnostic imaging, medications, performing a medically necessary evaluation, counseling on diagnoses, care coordination, ordering appropriate tests, ordering appropriate medications, review of tests performed by other providers, reporting test results with the patient, communication with other healthcare providers. [facility] Medical History (Updated 03/01/25 @ 13:28 by Yesenia Moore, [facility]) Arthritis Carpal tunnel syndrome Osteopenia Rosacea Thyroid disorder Surgical History (Updated 01/30/25 @ 11:32 by Pollo Herzog MA) H/O cone biopsy of cervix H/O: hysterectomy History of lumbar fusion History of tonsillectomy Hx of colonoscopy (~2017) Family History (Updated 01/30/25 @ 11:32 by Pollo Herzog MA) Brother HTN (hypertension) Mother Breast cancer Paternal Grandfather Substance abuse Social History (Updated 01/30/25 @ 11:05 by Pollo Herzog MA) Household Members: None Both parents involved: No Caregiver staying overnight: No Housing: House Are you a primary primary care nurse practitioner to a significant other at home: No Do you presently have visiting nurse or other home services: No 75 years or older and lives alone: No Alcohol intake: never Patient Tobacco Use Status: Never used Tobacco e-Cigarette/Vaping Use: Never Used Second Hand Smoke Exposure: No service: No Current occupational status: employed and retired 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 Current occupational exposures/hazards: No Cognitive needs: No Hearing needs: No Vision needs: Yes (wear glasses) Questionnaire Medicare Wellness Checkup What [age] 65-70 What gender do you identify with?: female During the past 4 weeks, how much have you been bothered by emotional problems such as feeling anxious, depressed, irritable, sad or downhearted, and blue?: not at all During the past 4 weeks, has your physical & emotional health limited your social activities with family, friends, neighbors, or groups?: not at all During the past 4 weeks, how much bodily pain have you generally had?: no pain During the past 4 weeks, was someone available to help you if you needed & wanted help?: yes, as much as I wanted During the past 4 weeks, what was the hardest physical activity you could do for at least 2 minutes?: moderate Can you get to places out of walking distance without help? (For eg., can you travel alone on buses, taxis or drive your car?): Yes Can you go shopping for groceries or clothes without someone's help?: Yes Can you prepare your own meals?: Yes Can you do your housework without help?: Yes Because of any health problems, do you need the help of another person with your personal care needs such as eating, bathing, dressing or getting around the house?: No Can you handle your own money without help?: Yes During the past 4 weeks, how would you rate your health in general?: excellent During the past 4 weeks how have things been going for you?: very well; could hardly better Are you having difficulties driving your car?: no Do you always fasten your seat belt when you are in a car?: yes, usually During past 4 weeks, have you been bothered by the following: never: Falling or dizzy when standing up, Sexual problems?, Trouble eating well?, Teeth or denture problems?, Problems using the telephone? and Tiredness or fatigue? Have you fallen 2 or more times in the past year?: No Are you afraid of falling?: No Are you a smoker?: no During the past 4 weeks, how many drinks of wine, beer, or other alcoholic beverages did you have?: no alcohol at all Do you exercise for about 20 minutes 3 or more times a week?: yes, some of the time Have you been given information to help with the following?: no: Hazards in your house that might hurt you? and no: Keeping track of your medications? How often do you have trouble taking medicines the way you have been told to take them?: I always take medicine as prescribed How confident are you that you can control & manage most of your health problems?: very confident What is your race?: White Activity of Daily Living Bathing - sponge bath, tub bath or shower: receives no assistance (gets in/out by self, if usual bathing means Dressing - getting clothes from closets & drawers, including inner/outer garments & fasteners.: gets clothes & gets completely dressed without help Toileting - going to the 'toilet room' for urine/bowel elimination & cleaning self/arranging clothes: goes to toilet room, cleans self, arranges clothes without help Transfer: moves in & out of bed and chair without help (may use support object) Continence: controls urination/bowel movements completely by self Feeding: feeds self without help Total Score: 0 Information obtained from: patient Using telephone: independent Traveling: independent Shopping: independent Preparing meals: independent Housework: independent Taking medicine: independent Managing money: independent PHQ-9 Over the last 2 weeks, how often have you been bothered by any of the following problems? 1. Little interest or pleasure in doing things: not at all 2. Feeling down, depressed, or hopeless: not at all 3. Trouble falling or staying asleep, or sleeping too much: not at all 4. Feeling tired or having little energy: not at all 5. Poor appetite or overeating: not at all 6. Feeling bad about yourself - or that you are a failure or have let yourself or your family down: not at all 7. Trouble concentrating on things, such as reading the newspaper or watching television: not at all 8. Moving or speaking so slowly that other people could have noticed. Or the opposite - being so fidgety or restless that you have been moving around a lot more than usual: not at all 9. Thoughts that you would be better off or of hurting yourself in some way: not at all Total score: 0 Depression Screening Interpretation: Negative Depression Screening Done: Yes 54838 - PHQ-9 Billing: Yes Source: Developed by Drs. Star L. BrodyJennifer malone, Mik Maciel and colleagues, with an educational portia from [employer]. Physical Exam Vital Signs: Last Vital Signs Temp 97.3 F 03/01/25 11:29 Pulse 63 03/01/25 11:29 Resp 12 03/01/25 11:29 BP 99/68 03/01/25 11:29 Pulse Ox 100 03/01/25 11:29 Oxygen Delivery Method Room Air 03/01/25 11:29 BMI result Body Mass Index 20.2 Office Procedures EKG 23906-[id number], Complete Vision Screening Right Eye: 20/25 Left Eye: 20/30 Bilateral: 20/25 Color: Pass Corrected: Pass (wearing glasses) 21303 - Vision Screening Results Reviewed Results Reviewed: Laboratory 01/30/25 Result Units Range Interpretation Provider Comments White Blood Count 5.5 X10*3/uL (4.8-10.8) Red Blood Count 4.59 X10*6/uL (4.20-5.50) Hemoglobin 14.6 g/dl (12.0-16.0) Hematocrit 45.2 % (37.0-47.0) Mean Corpuscular Volume 98.5 fL (80.0-98.0) High Mean Corpuscular Hemoglobin 31.8 pg (27.0-33.0) Mean Corpuscular Hemoglobin Concent 32.3 g/dl (31.0-35.0) Red Cell Distribution Width 13.1 % (11.0-16.0) Platelet Count 242 X10*3/uL (160-400) Mean Platelet Volume 11.3 fL (9.4-12.3) Nucleated RBC Absolute Count (auto) 0.000 X10*3/uL (0.0-0.012) Nucleated Red Blood Cells % (auto) 0.0 /100WBC (0.0-0.2) Sodium Level 142 mmol/L (135-145) Potassium Level 4.1 mmol/L (3.3-5.1) Chloride Level 104 mmol/L (96-108) Carbon Dioxide Level 31 mmol/L (22-29) High Anion Gap 11 (12-20) Low Blood Urea Nitrogen 15 mg/dL (9-16) Creatinine 0.72 mg/dL (0.5-1.4) Estimated Creatinine Clearance Calc Not Reportable Estimat Glomerular Filtration Rate > 60 Random Glucose 94 mg/dL (60-115) Estimated Average Glucose 105 mg/dL Hemoglobin A1c Percent 5.3 % (<6.0) Calcium Level 10.0 mg/dL (8.4-10.2) Iron Level 106 mcg/dL (30-160) Total Iron Binding Capacity 358 mcg/dL (228-428) Percent Iron Saturation 30 % (15-50) Unsaturated Iron Binding 252 ug/dL Ferritin 32 ng/mL (10-250) Total Bilirubin 0.5 mg/dL (0.0-1.0) Aspartate Amino Transf (AST/SGOT) 36 U/L (5-31) High Alanine Aminotransferase (ALT/SGPT) 33 U/L (0-31) High Alkaline Phosphatase 104 U/L (39-117) Total Protein 7.3 g/dL (6.5-8.0) Albumin 4.5 g/dL (3.5-5.0) Triglycerides Level 111 mg/dL (<150) Cholesterol Level 233 mg/dL (<200) High LDL Cholesterol, Calculated 139 mg/dL (<100) High HDL Cholesterol 72 mg/dL (>40) Vitamin B12 Level 1902 pg/mL (200-900) High 25-Hydroxy Vitamin D Total 71.7 ng/mL (>30) Folate 17.6 ng/mL (> or = 4.0) Thyroid Stimulating Hormone (TSH) 7.19 uIU/mL (0.32-4.0) High Free Thyroxine 0.85 ng/dL (0.71-1.85) Urine Creatinine 40.52 mg/dL Urine Microalbumin < 5.0 mg/L Urine Microalbumin/Creatinine Ratio TNP Assessment & Plan Assessment & Plan (1) Encounter for subsequent annual wellness visit (AWV) in Medicare patient: Onset Date: ~03/01/25 Code(s): Z00.00 - Encounter for general adult medical examination without abnormal findings (2) ACP (advance care planning): Onset Date: ~03/01/25 Code(s): Z71.89 - Other specified counseling (3) History of mammogram: Onset Date: ~09/06/24 Code(s): Z92.89 - Personal history of other medical treatment (4) HPV in female: Onset Date: ~06/08/23 Code(s): B97.7 - Papillomavirus as the cause of diseases classified elsewhere (5) HGSIL (high grade squamous intraepithelial lesion) on Pap smear of cervix: Onset Date: ~06/08/23 Code(s): R87.613 - High grade squamous intraepithelial lesion on cytologic smear of cervix (HGSIL) (6) Osteoporosis: Onset Date: ~09/24/23 Code(s): M81.0 - Age-related osteoporosis without current pathological fracture Qualifiers: Osteoporosis type: other Presence of current pathological fracture: without current pathological fracture Qualified Code(s): M81.8 - Other o steoporosis without current pathological fracture (7) Subclinical hypothyroidism: Code(s): E03.8 - Other specified hypothyroidism (8) Elevated LFTs: Code(s): R79.89 - Other specified abnormal findings of blood chemistry (9) HLD (hyperlipidemia): Code(s): E78.5 - Hyperlipidemia, unspecified Qualifiers: Hyperlipidemia type: mixed hyperlipidemia Qualified Code(s): E78.2 - Mixed hyperlipidemia Plan . Orders: Orders XR DEXA axial skeleton Today Z13.820 - Encounter for screening for osteoporosis Patient Instructions: Health screenings for women You should visit your health care provider from time to time, even if you are healthy. The purpose of these visits is to: Screen for medical issues Assess your risk for future medical problems Encourage a healthy lifestyle Update vaccinations and other preventive care services Help you get to know your provider in case of an illness Information Even if you feel fine, you should still see your provider for regular checkups. These visits can help you avoid problems in the future. For example, the only way to find out if you have high blood pressure is to have it checked regularly. High blood sugar and high cholesterol levels also may not have any symptoms in the early stages. A simple blood test can check for these conditions. There are specific times when you should see your provider or receive specific health screenings. The [place] Preventive Services Task Force publishes a list of recommended screenings. Below are screening guidelines for women ages 18 to 39. BLOOD PRESSURE SCREENING Your blood pressure should be checked at least once every 3 to 5 years if: Your blood pressure is in the normal range (top number less than 120 mm Hg and bottom number less than 80 mm Hg) You don't have risk factors for high blood pressure Ask your provider if you need your blood pressure checked more often if: The top number is 120 to 129 mm Hg or the bottom number is 70 to 79 mm Hg You have diabetes, heart disease, kidney problems, are overweight, or have certain other health conditions You have a first-degree relative with high blood pressure You are Black You had high blood pressure during a If the top number is 130 mm Hg or greater or the bottom number is 80 mm Hg or greater, this is considered stage 1 hypertension. Schedule an appointment with your provider to learn how you can reduce your blood pressure. Watch for blood pressure screenings in your area. Ask your provider if you can stop in to have your blood pressure checked. BREAST CANCER SCREENING Experts do not agree about the benefits of breast self-exams in finding breast cancer or saving lives. Talk to your provider about what is best for you. A screening mammogram is not recommended for most women under age 40. Your provider may discuss and recommend mammograms, MRI scans, or ultrasounds if you have an increased risk for breast cancer, such as: A mother or sister who had breast cancer at a young age (most often starting screening earlier than the age the close relative was diagnosed) You carry a high-risk genetic marker CERVICAL CANCER SCREENING Cervical cancer screening should start at age 21 years unless your provider advises otherwise. After the first test: Women ages 21 through 29 should have a Pap test every 3 years. Exoprts do not agree on whether HPV testing is recommended for this age group. Women ages 30 through 65 should be screened with either a Pap test every 3 years or the HPV test every 5 years or both tests every 5 years (called cotesting ). Women who have been treated for precancer (cervical dysplasia) should continue to have Pap tests for 20 years after treatment or until age 65, whichever is longer. If you have had your uterus and cervix removed (total hysterectomy), and you have not been diagnosed with cervical cancer or precancer (high grade cervical neoplasia), you do not need cervical cancer screening. CHOLESTEROL SCREENING Cholesterol screening should begin at: Age 45 for women with no known risk factors for coronary heart disease Age 20 for women with known risk factors for coronary heart disease Repeat cholesterol screening should take place: Every 5 years for women with normal cholesterol levels More often if changes occur in lifestyle (including weight gain and diet) More often if you have diabetes, heart disease, kidney problems, or certain ot her conditions DIABETES SCREENING You should be screened for diabetes starting at age 35 and then repeated every 3 years if you have no risk factors for diabetes. Screening may need to start earlier and be repeated more often if you have other risk factors for diabetes, such as: You have a first degree relative with diabetes. You are overweight or have obesity. You have high blood pressure, prediabetes, or a history of heart disease. Screening for diabetes should be done if you are planning to become and you are overweight and have other risk factors such as high blood pressure. DENTAL EXAM Go to the dentist once or twice every year for an exam and cleaning. Your dentist will evaluate if you need more frequent visits. EYE EXAM Have an eye exam every 5 to 10 years before age 40. If you have vision problems, have an eye exam every 2 years or more often if recommended by your provider. You should have an eye exam that includes an examination of your retina (back of your eye) at least every year if you have diabetes. IMMUNIZATIONS Commonly needed vaccines include: Flu shot: get one every year. COVID-19 vaccine: ask your provider what is best for you. Tetanus-diphtheria and acellular pertussis (Tdap) vaccine: have one at or after age 19 as one of your tetanus-diphtheria vaccines if you did not receive it as an adolescent. Tetanus-diphtheria: have a booster (or Tdap) every 10 years. Varicella vaccine: receive 2 doses if you never had chickenpox or the varicella vaccine. Hepatitis B vaccine: receive 2, 3, or 4 doses, depending on your exact circumstances. Measles, mumps, and rubella (MMR) vaccine: receive 1 to 2 doses if you are not already immune to MMR. Your provider can tell you if you are immune. Ask your provider about the human papillomavirus (HPV) vaccine if: You have not received the HPV vaccine in the past You have not completed the full vaccine series (you should catch up on this shot) Ask your provider if you should receive other immunizations if you have certain health problems that increase your risk for some diseases such as pneumonia. INFECTIOUS DISEASE SCREENING Women who are sexually active should be screened for chlamydia and gonorrhea up until age 25. Women 25 years and older should be screened for chlamydia and gonorrhea if at high risk. Screening for hepatitis C: All adults ages 18 to 79 should get a one-time test for hepatitis C. people should be screened at every . Screening for human immunodeficiency virus (HIV): All people ages 15 to 65 should get a one-time test for HIV. Depending on your lifestyle and medical history, you may also need to be screened for infections such as syphilis and HIV, as well as other infections. PHYSICAL EXAM All adults should visit their provider from time to time, even if they are healthy. The purpose of these visits is to: Screen for disease Assess your risk of future medical problems Encourage a healthy lifestyle Update your vaccinations and other preventive care services Maintain a relationship with a provider in case of an illness Your height, weight, and BMI should be checked at every exam. During your exam, your provider may ask you about: Depression and anxiety Diet and exercise Alcohol and tobacco use Safety issues, such as using seat belts, smoke detectors, and intimate partner violence Your medicines and risk for interactions SKIN SELF-EXAM Your provider may check your skin for signs of skin cancer, especially if you're at high risk, such as if you: Have had skin cancer before Have close relatives with skin cancer Have a weakened immune system OTHER SCREENING Talk with your provider about colon cancer screening if you have a strong family history of colon cancer or polyps, or if you have had inflammatory bowel disease or polyps yourself. Routine bone density screening of women under 40 is not recommended. Quality Reporting (2019) Adult ([facility] 138//) Smoking risk assessment performed?: Yes Patient Tobacco Use Status: Never used Tobacco Depression screening performed: Yes Screen Results: Yes Negative screen Systolic BP not done?: No Diastolic BP not done?: No BMI screening not done: No Sexual Activity Screening ([facility] 153) Sexually active?: Yes Immunizations ([facility] 147, 117) Annual Influenza Vaccine: Yes Measles Antibody Test: No Mumps Antibody Test: No Rubella Antibody Test: No Varicella Antibody Test: No Anti Hepatitis A IgG Antigen test: No Anti Hepatitis B Virus Surface Ab test: No Fall Risk Screening ([facility] 139) Last assessed Fall Risk: 03/01/25 Fall risk assessment: No Falls in past year Dementia Assessment ([facility] 149) Cognitive assessment recorded: Yes Assessment of cognition with standardized tool: Yes Depression/Bipolar (159/160/161/177) PHQ-9: Total score: 0 Ophthalmol:Cataracts Visual Acuity (133) Visual acuity exam performed: Yes Coding Level of Care Code Medicare Subsequent (G0439) Est Pt Level 4 (04673) Diagnoses Encounter for subsequent annual wellness visit (AWV) in Medicare patient Z00.00 ACP (advance care planning) Z71.89 History of mammogram Z92.89 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 R87.613 Other osteoporosis without current pathological fracture M81.8 Osteoporosis type: other Presence of current pathological fracture: without current pathological fracture Subclinical hypothyroidism E03.8 Elevated LFTs R79.89 Mixed hyperlipidemia E78.2 Hyperlipidemia type: mixed hyperlipidemia CPT Codes Advance Care Planning - Time spent: 16-45 minutes ([id number]) EKG - CPT: 49315-[id number], Complete ([id number]) Vision Screening - Vision Screenin - Vision Screening ([id number]) Additional Codes PHQ-9 - 94887 - PHQ-9 Billing: Yes ([id number]) Advance Care Planning Advance Care Planning discussion: Exists, not on file Date of discussion: 03/01/25 Who was present: self Forms completed: Health Care Proxy and MOLST Time spent: 16-45 minutes Actual minutes spent: 16
[2025-03-01 11:29] VITALS: BP 99/68; PULSE 63; RESP 12; TEMP 36.3; O2SAT 100; BMI 20.2
== END 2025-03-01 12:13 | disposition home or self-care (01) ==
LOC: HO.HMCFM 11:23
PROVIDERS: PCP Nurse Practitioner Family; Visit Provider Nurse Practitioner Family
DX: Z00.00 Encounter for general adult medical examination without abnormal findings (principal); R87.613 High grade squamous intraepithelial lesion on cytologic smear of cervix (HGSIL); B97.7 Papillomavirus as the cause of diseases classified elsewhere; M81.8 Other osteoporosis without current pathological fracture; E03.8 Other specified hypothyroidism; R74.01 Elevation of levels of liver transaminase levels; E78.2 Mixed hyperlipidemia; Z71.89 Other specified counseling; Z92.89 Personal history of other medical treatment

== ENCOUNTER → 2025-03-01 11:22 | Outpatient (BNVA) | payer MEDICARE, SELFPAY | PROVIDERS: PCP Nurse Practitioner Family; Visit Provider Nurse Practitioner Family | DX: Z00.00 Encounter for general adult medical examination without abnormal findings (principal); M54.50 Low back pain, unspecified; G89.29 Other chronic pain; E03.8 Other specified hypothyroidism; R53.83 Other fatigue; H26.9 Unspecified cataract; B97.7 Papillomavirus as the cause of diseases classified elsewhere; R87.613 High grade squamous intraepithelial lesion on cytologic smear of cervix (HGSIL); M81.8 Other osteoporosis without current pathological fracture; E78.2 Mixed hyperlipidemia; Z71.89 Other specified counseling; Z92.89 Personal history of other medical treatment | CPT/HCPCS: 96127; 99212; 99497 ==

== ENCOUNTER 2025-03-27 09:24 | Outpatient (REF) | payer MEDICARE, SELFPAY ==
--- OUTSIDE RECORDS SUMMARY | 2025-03-27 10:37 | XMS_ITS | Patient Health Record ---
Author Organization [facility] Address [address] [place] [address] Care Team Providers Care Foreclosure Home Inspector Name Role Phone KAIN (), SARAVANANJOSSUEPATY Primary Care Provider U FAVIO Augustin Unavailable [phone] Allergies Allergen (clinical drug ingredient) Drug/Non Drug Allergy documented on EMR Reaction Allergy Type Onset Date Status codeine CODEINE Nausea/Vomiting/ Diarrhea Drug Allergy Active Results Component Value Reference Range Notes [id number] IGP No Culture 30 Plus Reviewed date:06/16/2024 04:42:37 PM Interpretation: Performing Lab:[facility], [address], [address], [place], Phone - [phone], Director - [facility] Notes/Report: Clinical Information:Cervical, LMP: [place], Hx of HGSIL, + HPV Source.............Vagina LMP / Prev Treat...Hyst Dates / Results....06/08/23 HGSIL, + HPV Other..............Post Menopausal No. of containers..01 ThinPrep Vial DIAGNOSIS: NEGATIVE FOR IN TRAEPITHELIAL LESION OR MALIGNANCY. Specimen adequacy: Satisfact ory for evaluation. Clinician provided ICD10: Z0 1.419 Performed by: Sharad faith, Hoop Machine Operator (ASCP) . . 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 .CE: Smoking: former smoker .CE: Smoking Amount: 1 PPD x 10 years .CE: Smoking Quit Date: 1981 Tobacco exposure: No smokers in home. 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 .CE: Smoking: former smoker .CE: Smoking Amount: 1 PPD x 10 years .CE: Smoking Quit Date: 1981 Tobacco exposure: No smokers in home. 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 .CE: Smoking: former smoker .CE: Smoking Amount: 1 PPD x 10 years .CE: Smoking Quit Date: 1981 Tobacco exposure: No smokers in home. 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 .CE: Smoking: former smoker .CE: Smoking Amount: 1 PPD x 10 years .CE: Smoking Quit Date: 1981 Tobacco exposure: No smokers in home. .CE: Alcohol: none Illicit drugs: no Problems Problem Type SNOMED Code ICD Code Onset Dates Problem Status W/U Status Risk Notes Problem Hypothyroidism (61066441) Unspecified hypothyroidism (244.9) Active confirmed Problem Rosacea (341072605) Rosacea (695.3) Active conf irmed Problem Human papilloma virus deoxyribonucleic acid test positive, high risk on vaginal specimen (675949006663049) Cervical high risk human papillomavirus (HPV) DNA test positive (R87.810) Active confirmed Problem Postmenopausal atrophic vaginitis (49727872) Postmenopausal atrophic vaginitis (N95.2) Active confirmed Problem Postmenopausal bleeding (84479941) Postmenopausal bleeding (N95.0) Active confirmed Problem Herpetic vulvovaginitis (04861170) 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) Active confirmed Problem Abnormal findings on diagnostic imaging of breast (886583017) Other abnormal and inconclusive findings on diagnostic imaging of breast (R92.8) Active confirmed Problem Carpal tunnel syndrome (80461512) Carpal tunnel syndrome (354.0) Active confirmed Major Problem 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) (951516499) Unspecified hypertrophic and atrophic condition of skin (701.9) Active confirmed Diag Vital Signs Temperature 97.4 degrees Fahrenheit 06/14/2024 Blood pressure diastolic 70 mm Hg 06/14/2024 Height 61 in 06/14/2024 Blood pressure systolic 108 mm Hg 06/14/2024 Weight 104 lbs 06/14/2024 BMI 19.65 kg/m2 06/14/2024 Encounters Encounter Location Date Provider Diagnosis [facility] [place] [address] [facility] [address] [address] 05/31/2024 [facility] [address] [facility] [address] [address] 10/25/2024 FAVIO RAPP Herpesviral vulvovaginitis A60.04 [facility] [address] [address] 04/01/2024 FAVIO RAPP Herpesviral vulvovaginitis A60.04 [facility] [address] [facility] [address] [address] 06/24/2024 [facility] [address] [facility] [facility] [address] [address] 09/25/2024 [facility]APP [facility] [address] [address] [address] 09/26/2024 FAVIO RAPP [facility] [address] [address] 06/14/2024 FAVIO RAPP Encounter for gynecological examination (general) (routine) without abnormal findings Z01.419 ; Encounter for screening mammogram for malignant neoplasm of breast Z12.31 and Postmenopausal atrophic vaginitis N95.2 Assessments Encounter Date Diagnosis (ICD Code) Assessment [...] INTACT 12/12/2014 THIN PREP,HPV,MARLENY IF HPV+ (>29YR)(DIAG) 03/17/2017 THIN PREP,HPV,MARLENY IF HPV+ (>29YR)(DIAG) 06/02/2022 THIN PREP,HPV,MARLENY IF HPV+ (>29YR)(DIAG) 03/12/2018 THIN PREP,HPV,MARLENY IF HPV+ (>29YR)(DIAG) 10/11/2019 THIN PREP,HPV,MARLENY IF HPV+ (>29YR)(SCRN) 12/05/2015 TSH [...] Provider Name:FAVIO Sky, 06/20/2025 08:00:00 AM, [address], [address], [place], [address], Insurance Providers Payer Name Payer Address Payer Phone Subscriber Number Group Number Insured Name Patient Relationship to Insured Coverage Start Date Coverage End Date [employer] MEDICARE PPO [address] [place] [address] [id number] ISMA PRUITT Self - patient is the [...]
== END 2025-03-27 09:25 | disposition home or self-care (01) ==
LOC: HO.WFDLDS 09:24
PROVIDERS: Visit Provider Nurse Practitioner Family
DX: E03.8 Other specified hypothyroidism (principal)
CPT/HCPCS: 36415; 84443